=== PATIENT | female | born 1955 | race Caucasian/White ===

== ENCOUNTER → 2017-02-17 | Outpatient (CLI) | payer OTHER ==
[~2017-02-17] MED LIST: CRESTOR; LISINOPRIL; NAPROSYN500 MG PO; PREMARIN; PROTONIX; VITAMIN B12-FO1 EACH
--- NOTE | ~2017-02-17 | CR186 ---
[facility] A Service of [facility] & [facility] RADIOLOGY TEXT RESULTS PATIENT: ZULAY RAMIREZ LOCATION: [facility] : 57 UNIT #: [id number] AGE: [address]: Amy Hyman MD SEX: F ORDER DR: [id number] [place] [id number] O MR#: [id number] Acc #: [id number] NAME: ZULAY RAMIREZ : 1955 SEX: F STUDY DATE/TIME: 02/17/2017 20:20 [facility]: STUDY DESCRIPTION: CR Lumbar Spine W Bend Min 6 V Attending Physician: Amy Hyman M.D. Ordering Physician: Amy Hyman M.D. Primary Care Physician: Amy Hyman M.D. MEDICAL IMAGING REPORT This report is preliminary unless electronic signature is present. EXAM Lumbar spine, 7 views. INDICATION 62-year-old female with low back pain for 1 month. COMPARISON STUDIES No comparisons. FINDINGS Minimal grade 1 anterolisthesis of L4 on L5. No dynamic instability on flexion extension views. Multilevel mild degenerative disc space narrowing. Mid and lower lumbar spine facet arthropathy. IMPRESSION Degenerative changes as described. Dictated by... John Luther M.D. THIS IS AN ELECTRONICALLY VERIFIED REPORT John Luther M.D. at 02/18/2017 4:28 PM SHITAL/del TD: 02/18/2017 09:24 JOB #: [id number] MEDICAL IMAGING REPORT Page 1 of 1
--- NOTE | ~2017-02-17 | CR58 ---
[facility] A Service of [facility] & [facility] RADIOLOGY TEXT RESULTS PATIENT: ZULAY RAMIREZ LOCATION: [facility] : 57 UNIT #: [id number] AGE: [address]: Amy Hyman MD SEX: F ORDER DR: [id number] [place] [id number] O MR#: [id number] Acc #: [id number] NAME: ZULAY RAMIREZ : 1955 SEX: F STUDY DATE/TIME: 02/17/2017 20:20 UNIT: [facility] ROOM: STUDY DESCRIPTION: CR Cervical Spine 2 or 3 Views Attending Physician: Amy Hyman M.D. Ordering Physician: Amy Hyman M.D. Primary Care Physician: Amy Hyman M.D. MEDICAL IMAGING REPORT This report is preliminary unless electronic signature is present. EXAM Cervical spine 4 views INDICATION 62-year-old female with neck pain for 1 month. COMPARISON No comparisons FINDINGS Vertebral body heights alignment are maintained. Mild disc space narrowing at C5-C6. Multilevel facet hypertrophy. Odontoid intact and the lateral masses are well aligned. IMPRESSION Degenerative changes as described. Dictated by... John Luther M.D. THIS IS AN ELECTRONICALLY VERIFIED REPORT John Luther M.D. at 02/18/2017 4:28 PM SHITAL/bethany TD: 02/18/2017 09:20 JOB #: [id number] MEDICAL IMAGING REPORT Page 1 of 1
--- NOTE | ~2017-02-17 | CR278 ---
[facility] A Service of [facility] & [facility] RADIOLOGY TEXT RESULTS PATIENT: ZULAY RAMIREZ LOCATION: [facility] : 57 UNIT #: [id number] AGE: [address]: Amy Hyman MD SEX: F ORDER DR: [id number] [address] [address] [id number] O MR#: [id number] Acc #: [id number] NAME: ZULAY RAMIREZ : 1955 SEX: F STUDY DATE/TIME: 02/17/2017 20:20 UNIT: [facility] ROOM: STUDY DESCRIPTION: CR Wrist 2 View Lt Attending Physician: Amy Hyman M.D. Ordering Physician: Amy Hyman M.D. Primary Care Physician: Amy Hyman M.D. MEDICAL IMAGING REPORT This report is preliminary unless electronic signature is present. EXAM Left wrist, 2 views. INDICATION 62-year-old female with wrist pain for 1 month. COMPARISON STUDIES No comparisons. FINDINGS Carpal alignment maintained. No fracture or dislocation. Soft tissue structures unremarkable. IMPRESSION Negative. Dictated by... John Luther M.D. THIS IS AN ELECTRONICALLY VERIFIED REPORT John Luther M.D. at 02/18/2017 4:28 PM SHITAL/del TD: 02/18/2017 09:22 JOB #: [id number] MEDICAL IMAGING REPORT Page 1 of 1
== END | disposition home or self-care (01) ==
LOC: SRAD 20:10
DX: M51.37 Other intervertebral disc degeneration, lumbosacral region (principal); M54.12 Radiculopathy, cervical region; M25.532 Pain in left wrist; M25.432 Effusion, left wrist; M47.22 Other spondylosis with radiculopathy, cervical region; M47.816 Spondylosis without myelopathy or radiculopathy, lumbar region
CPT/HCPCS: 72040; 72114; 73100